=== PATIENT | male | born 1995 | race Caucasian/White ===

== ENCOUNTER 2024-04-20 08:32 | Outpatient (CLI) | payer OTHER | END 2024-04-20 23:59 | disposition home or self-care (01) | LOC: CARD DIAG 08:32 | PROVIDERS: ATTEND Chiropractor | DX: I37.1 Nonrheumatic pulmonary valve insufficiency (principal); I10 Essential (primary) hypertension; M19.041 Primary osteoarthritis, right hand; I25.10 Atherosclerotic heart disease of native coronary artery without angina pectoris; I25.9 Chronic ischemic heart disease, unspecified; M79.89 Other specified soft tissue disorders | CPT/HCPCS: 73130; 93306 ==